=== PATIENT | male | born 1950 ===

== ENCOUNTER → 2025-02-15 11:54 | Outpatient (REF) | payer MEDICARE, OTHER, SELFPAY ==
[2025-02-15 12:39] LABS: Hematocrit 45.3 % (39.0-52.0); Hemoglobin 15.7 g/dL (13.0-18.0); Mean Corp Hgb Conc. 34.7 g/dL (33.0-37.0); Mean Corpuscular Volume 87.5 fL (80.0-94.0); Nucleated Red Blood Cells % 0 % (-); Platelet Count 173 10^3/uL (130-400); Red Cell Dist. Width 12.7 % (11.5-14.5)
[2025-02-15 13:45] LABS: ALT (SGPT) 40 U/L (0-50); AST (SGOT) 35 U/L (17-59); Albumin 4.2 g/dl (3.5-5.0); Alkaline Phosphatase 82 U/L (38-126); Blood Urea Nitrogen 18 mg/dl (9-20); Calcium 9.7 mg/dl (8.4-10.2); Carbon Dioxide 29 mmol/L (22-30); Chloride 106 mmol/L (98-107); Glucose 99 mg/dl (70-99); Potassium 4.4 mmol/L (3.5-5.1); Sodium 141 mmol/L (135-145); Total Protein 6.5 g/dl (6.3-8.2); eGFR > 60.00
== END ==
LOC: REG 11:54
PROVIDERS: ATTENDING PHYSICIAN Surgery Plastic and Reconstructive Surgery; FAMILY PHYSICIAN Family Medicine
DX: Z01.812 Encounter for preprocedural laboratory examination (principal); Z01.810 Encounter for preprocedural cardiovascular examination
CPT/HCPCS: 36415; 80053; 85025; 93005

== ENCOUNTER 2025-03-07 06:39 | Day surgery (SDC) | payer MEDICARE, OTHER, SELFPAY ==
[2025-03-07] VITALS (8 sets, daily range): BP systolic 103–149; BP diastolic 62–83; BMI 32.5
[2025-03-07] MEDS: TYLENOL 1000 MG PO (11:49)
[2025-03-07] MEDS: NORMOSOL-R/PLASMALYTE-A 1000 IV (11:50)
--- NOTE | 2025-03-07 14:01 | W.IMMPOSTOP ---
Surgical Immed Post Op Note
-
Primary Surgeon: DEO George MD
Assisting Surgeon:
Pre-op Diagnosis: Left preauricular skin lesion
Post-op Diagnosis: Same
Procedure Performed: Excision of left preauricular skin lesion, adjacent tissue transfer face
Anesthesia Type: General
Specimen / Cultures: Left preauricular lesion
Estimated Blood Loss: 10 cc
Complications: None
Operative Findings: As expected
--- NOTE | 2025-03-07 14:01 | OR.RPT ---
Operative Report
Operative Report
Date of surgery: 03/07/2025
Surgeon: DEO George MD
Preoperative diagnosis:
1. Lesion of unknown diagnosis left preauricular face, skin
Postoperative diagnosis: Same
Procedure:
1. Excision of skin lesion, benign, 2 x 2 cm left face
2.. Adjacent tissue transfer left face 5 x 8 cm
Anesthesia: General
EBL: 10 cc
Complications: None
Specimens: Left preauricular lesion, likely cyst
Indications for procedure: Patient is a 74-year-old male who developed a slow-growing lesion of the left preauricular skin over the base of the ear cartilage. He desired excision for formal diagnosis and treatment. Given the possibility of
vascular malformation as it was tense and bluish in nature, plan was made for excision and reconstruction in the OR. Furthermore, conversation was had about the difficult area to reconstruct and the need for adjacent tissue transfer to recruit
local tissue to the area to fill the defect. Scars would be planned along the hairline and in a facelift incision pattern. He understood the scars of the longer given the adjacent tissue transfer with better cosmesis ideally. Risks include
recurrence, need for repeat procedure, bleeding, hematoma seroma infection and poor wound healing and skin loss. Abnormal scarring is also possible. He understood these risk desire to proceed.
Procedure in detail: Patient was identified preoperatively and the surgical site was confirmed to be the left preauricular face. All consents were confirmed and all questions were answered. Patient was taken back the operating placed supine on
table. Anesthesia was induced the patient was prepped with Betadine solution in the usual sterile fashion. Patient was then draped and a timeout for patient safety was performed ensuring that preoperative antibiotics have been administered and
bilateral SCDs were in place. 10 cc of 1% lidocaine with epinephrine was then injected into the skin around the lesion and into the midface and baptist. An appropriate manage time was waited and then the excision was performed with a 15 blade over
an area of 2 x 2 cm taking the skin lesion and bulk. It was noticed that the lesion was well encapsulated not consistent with a vascular malformation but rather potentially a cyst. The cyst was excised and sent for pathology, draining a clear
blue-brown fluid. The resultant defect had no further abnormalities. Given the lack of skin in the area, primary closure was not possible. As such adjacent tissue transfer is planned borrowing a transposition flap anteriorly and advancement flap
inferiorly. This would allow for scar placement in the sideburn and in the preauricular line consistent with a facelift incision. The skin was undermined using a facelift scissor. Bipolar and monopolar cautery was used as needed for meticulous
hemostasis. Follow primary defect was 2 x 2 cm, the secondary defect measured 5 x 8 cm for skin undermining and backcut along the sideburn and pretragal line. The triangular tissue was advanced into the wound defect and sutured in place. The
resultant dogear was excised inferiorly. Wound was closed with 5-0 Vicryl followed by 5-0 nylon. Patient tolerated the procedure well was performed out complication. All counts were correct at the end the case. Explained taken the PACU further
care.
== END 2025-03-07 14:47 | disposition home or self-care (01) ==
LOC: SDS 06:39
PROVIDERS: ATTENDING PHYSICIAN Surgery Plastic and Reconstructive Surgery
DX: D23.22 Other benign neoplasm of skin of left ear and external auricular canal (principal); L98.9 Disorder of the skin and subcutaneous tissue, unspecified
CPT/HCPCS: 14301; 15004; 11442; 88304